=== PATIENT | male | born 1980 | race African-American/Black ===

== ENCOUNTER 2016-11-09 15:21 | Emergency (ER) | payer MEDICAID ==
[~2016-11-09] VITALS: Ht 175.3 cm; Wt 80.0 kg
[2016-11-09] MEDS ORDERED: ONDANSETRON 4MG ODT PO ONE (18:30)
[2016-11-09 23:25] VITALS: BP 137/90
== END 2016-11-10 00:10 | disposition home or self-care (01) ==
LOC: ER 16:01
DX: T50.903A Poisoning by unspecified drugs, medicaments and biological substances, assault, initial encounter (principal); R11.2 Nausea with vomiting, unspecified; R05 Cough; Z77.29 Contact with and (suspected) exposure to other hazardous substances; Y92.89 Other specified places as the place of occurrence of the external cause; I10 Essential (primary) hypertension
CPT/HCPCS: 71010; 99284; Q0162

== ENCOUNTER 2021-03-23 12:37 | Emergency (ER) | payer MEDICAID, MEDICARE ==
[~2021-03-23] VITALS: Ht 182.9 cm; Wt 118.0 kg
[2021-03-23] MEDS ORDERED: FAMOTIDINE 20MG/2ML VIAL IV STA (13:02)
[2021-03-23] MEDS ORDERED: MAGNESIUM/ALUMINUM HYDROXIDE/SIMETHICONE 30ML UDC PO STA (13:02)
[2021-03-23] MEDS ORDERED: VISCOUS LIDOCAINE 2% 15 ML UDC PO STA (13:02)
[2021-03-23] MEDS ORDERED: ONDANSETRON HCL 4MG/2ML INJ IV STA (13:02)
[2021-03-23] MEDS ORDERED: SODIUM CHLORIDE 0.9% 1,000 ML IV ONE (13:15)
[2021-03-23 13:38] LABS: BASOPHILS % 0.7 % (0.0-2.0); EOSINOPHILS % 0.8 % (0.0-5.0); HEMATOCRIT. 44.6 % (42.0-52.0); HEMOGLOBIN. 14.7 g/dL (14.0-18.0); LYMPHOCYTES % 18.2 % (20.0-50.0); MEAN CORPUSCULAR HEMOGLOBIN 29.3 pg (28.0-32.0); MEAN CORPUSCULAR VOLUME 88.6 fL (80.0-94.0); MEAN PLATELET VOLUME 7.9 fl (7.4-10.4); MONOCYTES % 4.8 % (2.0-8.0); NEUTROPHILS % 75.5 % (40.0-76.0); PLATELET 223 x1000/uL (130-400); RED BLOOD CELL COUNT 5.04 mill/uL (4.7-6.1)
[2021-03-23 13:48] LABS: PROTHROMBIN TIME 10.9 sec (9.6-11.0)
[2021-03-23 13:53] LABS: CHLORIDE 105 mEq/L (98-107)
[2021-03-23 13:58] LABS: ETHANOL BLOOD < 10 mg/dL
[2021-03-23] MEDS ORDERED: SUCR1TAB30 MT (15:22)
[2021-03-23] MEDS ORDERED: FAMO-135 MT (15:22)
[2021-03-23] MEDS ORDERED: ONDA4TAB5 MT (15:22)
[2021-03-23 15:30] VITALS: BP 135/88
== END 2021-03-23 15:59 | disposition home or self-care (01) ==
LOC: ER 12:41
DX: K29.70 Gastritis, unspecified, without bleeding (principal); I10 Essential (primary) hypertension; R11.2 Nausea with vomiting, unspecified; Z87.11 Personal history of peptic ulcer disease; Z98.890 Other specified postprocedural states
CPT/HCPCS: 36415; 80053; 80320; 83690; 85025; 85610; 93005; 96361; 96374; 96375; 99284; J2405; J3490; J7030; G0480

== ENCOUNTER 2024-11-17 17:59 | Emergency (ER) | payer MEDICAID, MEDICARE ==
[~2024-11-17] VITALS: Ht 195.6 cm; Wt 125.0 kg
[~2024-11-17 17:59] MED LIST: FAMO-135 MT; ONDA4TAB5 MT; SUCR1TAB30 MT
[2024-11-17 18:07] VITALS: O2SAT 98
[2024-11-17 19:17] LABS: CLARITY URINE CLEAR (CLEAR); COLOR URINE YELLOW (YELLOW); GLUCOSE URINE NEGATIVE (NEGATIVE); KETONES URINE TRACE (NEGATIVE); LEUKOCYTE ESTERASE URINE TRACE (NEGATIVE); NITRITE URINE NEGATIVE (NEGATIVE); OCCULT BLOOD URINE NEGATIVE (NEGATIVE); PH URINE 5.5 (4.5-8.0); PROTEIN URINE TRACE (NEGATIVE); SPECIFIC GRAVITY URINE 1.028 (1.005-1.030); UROBILINOGEN URINE 0.2 E.U./dL (0.2-1.0)
[2024-11-17 19:31] LABS: *AMPHETAMINES SCREEN URINE NEGATIVE (NEGATIVE); *BARBITURATES SCREEN URINE NEGATIVE (NEGATIVE); *BENZODIAZEPINES SCREEN URINE NEGATIVE (NEGATIVE); *COCAINE SCREEN URINE NEGATIVE (NEGATIVE); CANNABINOID URINE SCREEN PRESUMPTIVE POSITIVE (NEGATIVE); ECSTASY MDMA SCREEN URINE NEGATIVE (NEGATIVE); METHADONE URINE SCREEN NEGATIVE (NEGATIVE); OPIATES URINE SCREEN NEGATIVE (NEGATIVE); PHENCYCLIDINE URINE SCREEN NEGATIVE (NEGATIVE)
[2024-11-17 19:33] LABS: BACTERIA URINE NONE SEEN; MUCUS URINE TRACE /lpf (NONE/TRACE); RBC URINE NONE SEEN /hpf (0-2); SQUAMOUS EPITHELIAL CELL URINE NONE SEEN /lpf (RARE/1+); WBC URINE 0-2 /hpf (0-2)
[2024-11-17 19:48] LABS: BASOPHILS % 0.4 % (0.0-2.0); EOSINOPHILS % 0.2 % (0.0-5.0); HEMATOCRIT. 44.2 % (42.0-52.0); HEMOGLOBIN. 14.6 g/dL (14.0-18.0); LYMPHOCYTES % 22.5 % (20.0-50.0); MEAN PLATELET VOLUME 8.3 fl (7.4-10.4); MONOCYTES % 7.1 % (2.0-8.0); NEUTROPHILS % 69.8 % (40.0-76.0); PLATELET 195 x1000/uL (130-400); RED BLOOD CELL COUNT 5.07 mill/uL (4.7-6.1); RED CELL DISTRIBUTION WIDTH 13.8 % (11.6-14.6)
[2024-11-17 19:59] LABS: CREATININE 1.1 mg/dL (0.6-1.3); ETHANOL BLOOD < 10 mg/dL (<10); UREA NITROGEN BLOOD 10 mg/dL (9-23)
[2024-11-19 17:25] VITALS: TEMP 36.8
[2024-11-19 18:37] VITALS: BP 136/100; PULSE 105; RESP 16; O2SAT 98
== END 2024-11-19 18:53 ==
LOC: ER 17:59
DX: F20.9 Schizophrenia, unspecified (principal); I10 Essential (primary) hypertension; F17.200 Nicotine dependence, unspecified, uncomplicated; F12.90 Cannabis use, unspecified, uncomplicated; Z79.899 Other long term (current) drug therapy; Z98.890 Other specified postprocedural states; Z20.822 Contact with and (suspected) exposure to COVID-19
CPT/HCPCS: 36415; 80048; 80305; 80307; 80320; 80329; 81003; 85025; 87426; 99285; G0480